=== PATIENT | male | born 1955 | race Caucasian/White ===

== ENCOUNTER 2023-05-15 07:57 | Emergency (ER) | payer OTHER ==
[~2023-05-15] VITALS: Ht 177.8 cm; Wt 83.4 kg
[2023-05-15] MEDS ORDERED: ACET-1304 PO (10:55)
[2023-05-15 11:00] VITALS: BP 184/100; PULSE 72; RESP 16; TEMP 97.8; O2SAT 97
== END 2023-05-15 10:56 | disposition home or self-care (01) ==
LOC: ER 07:57
DX: M13.861 Other specified arthritis, right knee (principal)
CPT/HCPCS: 73562